=== PATIENT | female | born 1985 | race Caucasian/White ===

== ENCOUNTER 2016-12-22 23:07 | Emergency (ER) | payer OTHER ==
[~2016-12-22] VITALS: Ht 160 cm; Wt 76.2 kg
[~2016-12-22 23:07] MED LIST: AUGMENTIN 875 M1 TAB PO; BLM PO; DICLOXACILLIN500 MG PO; GOOD SENSE IBU200 MG PO; MEDROL DOSEPAK1 PAC PO; TYLENOL XSTR500 MG PO
[2016-12-23 00:50] LABS: ABSOLUTE BASOPHIL COUNT 0 /CUMM (0.0-0.2); ABSOLUTE EOSINOPHIL COUNT 0.1 /CUMM (0.0-0.7); ABSOLUTE GRANULOCYTE CT 3.6 /CUMM (1.4-6.5); ABSOLUTE LYMPH COUNT 2.2 /CUMM (1.2-3.4); ABSOLUTE MONOCYTE COUNT 0.4 /CUMM (0.10-0.60); BASOPHIL % 0.4 % (0.0-2.0); EOSINOPHIL % 1.6 % (0-5); GRANULOCYTE % 56.5 % (42.2-75.2); HEMATOCRIT 29.6 % (37-47); MEAN CORPUSCULAR HGB 21.3 PG (27.0-31.0); MEAN CORPUSCULAR HGB CONC 31.6 G/DL (33.0-37.0); MEAN CORPUSCULAR VOLUME 67.2 FL (81.0-99.0); MEAN PLATELET VOLUME 9.2 FL (7.4-10.4); PLATELET COUNT 163 /CUMM (130-400); RBC DISTRIBUTION WIDTH 17.3 % (11.5-14.5); WHITE BLOOD CELL COUNT 6.4 /CUMM (4.8-10.8)
--- NOTE | 2016-12-23 01:37 | ED CARDIAC/CP/PALPITATIONS ---
History of Present Illness General Chief Complaint: Chest Pain Stated Complaint: CP, LEFT ARM PAIN Source: patient Exam Limitations: no limitations Vital Signs & Intake/Output Vital Signs & Intake/Output Vital Signs Date Time Temp Pulse Resp B/P B/P Pulse O2 O2 Flow FiO2 Mean Ox Delivery Rate 12/23 0222 Room Air 12/23 0036 97.1 76 22 165/93 99 Room Air Allergies Coded Allergies: NO KNOWN ALLERGIES (11/13/15) Reconcile Medications Acetaminophen (Tylenol Xstr) 500 MG TAB 2 TAB PO PRN PAIN (Reported) AMOXICILLIN/POTASSIUM CLAV (Augmentin 875-125 Tablet) 875 MG/125 MG TAB 1 TAB PO BID PHARYNGITIS Ibuprofen 200 MG TAB 2 TAB PO PRN PAIN (Reported) LIDO/MAAL/DESTINEE (Magic Mouthwash) (Lido-Visc2% 30ML/[id number],MAALOX 120ml) 270 ML KARIN 10 ML PO TID PRN Mouth Pain EQUAL PARTS SWISH IN MOUTH X 30 SECONDS AND SPIT OUT Methylprednisolone. (Medrol) 1 PAC PAC 1 PAC PO AD INFLAMMATION Triage Note: 31YO FEMALE TO [place]/TRIAGE W/CO L CP THAT HAS BEEN PRESENT SINCE YESTERDAY. STATES RADIATION TO L ARM INTERMITTENTLY. DENIES ANY NAUSEA, SWEATINESS W/PAIN Triage Nurses Notes Reviewed? yes Onset: Abrupt Duration: day(s): (2) Timing: no prior history Location: central Radiation: UNDER LEFT BREAST Associated Symptoms: diaphoresis, shortness of breath : No Patient currently breastfeeds: No HPI: This is a 31-year-old female presents via with chief complaint of left-sided chest pain radiating to her left lower breast, left shoulder and arm for the past 2 days. Symptoms have been on and off. Maximum intensity of pain is 9 out of 10. Currently does 4-10. When it started on Saturday she associated shortness of breath, sweating and nausea. She states that occasionally she checks her blood pressure home and she is not feeling well and it is high. She's not on any medications for that. Denies any smoking alcohol or drug use. Denies any recent travel. She is not on any oral contraceptive pills. Denies any significant family history. Past History Travel History Traveled to [place] past 21 day No Medical History Any Pertinent Medical History? see below for history Neurological: NONE EENT: NONE Cardiovascular: NONE Respiratory: NONE Gastrointestinal: NONE Hepatic: NONE Renal: NONE Musculoskeletal: NONE Psychiatric: NONE Endocrine: NONE Blood Disorders: NONE Cancer(s): NONE ELECTRONIC SEMICONDUCTOR PROCESSOR/Reproductive: NONE Tetanus Vaccine: 09/24/12 Surgical History Surgical History: non-contributory Psychosocial History What is your primary language Faroese Tobacco Use: Never used Family History Hx Contributory? No Review of Systems Review of Systems Constitutional: Reports: diaphoresis. Denies: chills, fever. EENTM: Reports: no symptoms. Respiratory: Reports: short of breath. Denies: hemoptysis, sputum production. Cardiovascular: Reports: chest pain. Denies: palpitations. GI: Reports: no symptoms. Genitourinary: Reports: no symptoms. Musculoskeletal: Reports: no symptoms. Skin: Reports: no symptoms. Neurological/Psychological: Reports: anxiety. Hematologic/Endocrine: Denies: bruising, polyuria. Immunologic/Allergic: Reports: no symptoms. All Other Systems: Reviewed and Negative Physical Exam Physical Exam General Appearance: well developed/nourished, alert, awake, anxious, mild distress Head: atraumatic, normal appearance Eyes: Bilateral: normal appearance, PERRL, EOMI. Ears, Nose, Throat: normal pharynx, hearing grossly normal Neck: normal inspection, supple, full range of motion Respiratory: normal breath sounds, chest non-tender, no respiratory distress Cardiovascular: regular rate/rhythm Peripheral Pulses: 2+ radial (R), 2+ radial (L) Gastrointestinal: soft, non-tender Extremities: normal inspection, normal capillary refill, normal range of motion, no edema Neurologic/Psych: awake, alert, oriented x 3 Skin: intact, normal color, warm/dry Core Measures ACS in differential dx? Yes ASA ordered for poss ACS? Yes-ordered Severe Sepsis Present: No Septic Shock Present: No All Positive = PERC Ruled Out: Positive: age < 50 years, heart rate < 100 bpm, O2 sat > 94%, no hemoptysis, no hormone use, no prior DVT or PE, no unilateral leg swellin, no surgery/trauma w/ in 4w. Progress Differential Diagnosis: AMI, aortic dissection, musculoskeletal pain, myocarditis, pericarditis, pneumonia, pneumothorax, pulmonary embolism, PLEURISSY Plan of Care: Orders Procedure Date/time Status TROPONIN LEVEL 12/24 399 Complete EKG 05/07 0400 Active Telemetry/Plater Production 12/23 136 Active Add-on Test (ER Only) 12/23 133 Active PARTIAL THROMBOPLASTIN TIME 12/23 41 Complete PROTHROMBIN TIME 12/23 41 Complete HUMAN BETA HCG SCREEN 12/23 41 Complete D-DIMER 12/23 41 Complete TROPONIN LEVEL 12/23 26 Complete COMPREHENSIVE METABOLIC PANEL 12/23 26 Complete CBC WITHOUT DIFFERENTIAL 12/23 26 Complete EKG 12/22 2310 Active Laboratory Tests 12/23/16 0406: Troponin I < 0.01 12/23/16 0042: Anion Gap 11, Estimated GFR > 60, BUN/Creatinine Ratio 25.0, Glucose 112 H, Calcium 9.2, Total Bilirubin 0.3, AST 16, ALT 32, Alkaline Phosphatase 60, Troponin I < 0.01, Total Protein 7.0, Albumin 4.1, Globulin 2.9, Albumin/ Globulin Ratio 1.4, Total Beta HCG NEGATIVE, PT 10.7, INR 1.02, APTT 28, D-Dimer 414 H, CBC w Diff NO MAN DIFF REQ, RBC 4.40, MCV 67.2 L, MCH 21.3 L, RDW 17.3 H, MPV 9.2, Gran % 56.5, Lymphocytes % 34.8, Monocytes % 6.7, Eosinophils % 1.6 , Basophils % 0.4, Absolute Granulocytes 3.6, Absolute Lymphocytes 2.2, Absolute Monocytes 0.4, Absolute Eosinophils 0.1, Absolute Basophils 0, PUBS MCHC 31.6 L 12/23/16 003: Total Beta HCG Cancelled Diagnostic Imaging: Viewed by Me: CT Scan. Discussed w/RAD: CT Scan. Radiology Impression: PATIENT: KYRA ESQUIVEL PRESENT AGE: 31 PATIENT ACCOUNT NO: [id number] : 83 LOCATION: [facility] ORDERING PHYSICIAN: ARIAN MICHELLE MD SERVICE DATE: 12/23/16 EXAM TYPE: CAT - CTA CHEST-PULMONARY EMBOLISM EXAMINATION: CT ANGIOGRAM OF THE CHEST WITH AND WITHOUT CONTRAST (CT PULMONARY ANGIOGRAM FOR PE) CLINICAL INFORMATION: Pleuritic left-sided chest pain COMPARISON: None TECHNIQUE: Prior to contrast administration, noncontrast localization images were obtained. Subsequently, multidetector volumetric imaging was performed from the thoracic inlet to below the diaphragms following the administration of 95 mL Optiray 320 intravenous contrast. No contrast reaction reported. Sagittal, coronal, and MIP oblique sagittal reformatted images were obtained on the CT workstation, uploaded to PACS, and reviewed. Total exam dose-length product 475 mGy-cm. FINDINGS: QUALITY OF STUDY/CONTRAST BOLUS: Satisfactory PULMONARY ARTERIES: No central or segmental pulmonary emboli. THORACIC AORTA: No aneurysm or dissection. LUNG: The central airways are patent. No focal or diffuse lung parenchymal abnormality. No pulmonary nodules. PLEURA: No pleural effusion or pneumothorax. MEDIASTINUM: Normal heart size. No pericardial effusion. No hilar or mediastinal lymphadenopathy. No evidence of septal bowing or right heart strain. CHEST WALL/ AXILLA: No axillary or internal mammary lymphadenopathy. OSSEOUS STRUCTURES: No acute or suspicious osseous abnormality. UPPER ABDOMEN: Unremarkable. No reflux of contrast into the hepatic veins to suggest elevated right heart pressures. IMPRESSION: No pulmonary embolism or other acute intrathoracic abnormality. VTE: negative DICTATED BY: PILO SHARP MD DATE/TIME DICTATED:12/23/16310 RIG OPERATOR:HERMINIO DATE/TIME TRANSCRIBED:12/23/16310 CONFIDENTIAL, DO NOT COPY WITHOUT APPROPRIATE AUTHORIZATION. <Electronically signed in Other Vendor System> SIGNED BY: PILO SHARP MD 12/23/16316 Initial ED EKG: NSR Repeat EKG: unchanged Rhythm Strip: normal sinus rhythm Departure Departure Time of Disposition: 527 Disposition: HOME OR SELF CARE Condition: Stable Clinical Impression Primary Impression: Chest pain at rest Referrals: LENY DOUGLAS,SHAZIA Antunez (PCP/Family) KIMO MCCOY MD Additional Instructions: Please follow up with your primary care doctor in the office. Take Motrin or Tylenol as needed for pain. Follow-up with the blog writer listed regarding her episodes of chest pain. Departure Forms: Customer Survey General Discharge Information Critical Care Note Critical Care Note Critical Care Time: non-applicable
[2016-12-23 01:58] LABS: PT 10.7 SEC (9.4-12.5); PTT 28 SEC (25-37)
--- NOTE | 2016-12-23 03:17 | CT SCAN REPORT ---
EXAMINATION: CT ANGIOGRAM OF THE CHEST WITH AND WITHOUT CONTRAST (CT PULMONARY ANGIOGRAM FOR PE) CLINICAL INFORMATION: Pleuritic left-sided chest pain COMPARISON: None TECHNIQUE: Prior to contrast administration, noncontrast localization images were obtained. Subsequently, multidetector volumetric imaging was performed from the thoracic inlet to below the diaphragms following the administration of 95 mL Optiray 320 intravenous contrast. No contrast reaction reported. Sagittal, coronal, and MIP oblique sagittal reformatted images were obtained on the CT workstation, uploaded to PACS, and reviewed. Total exam dose-length product 475 mGy-cm. FINDINGS: QUALITY OF STUDY/CONTRAST BOLUS: Satisfactory PULMONARY ARTERIES: No central or segmental pulmonary emboli. THORACIC AORTA: No aneurysm or dissection. LUNG: The central airways are patent. No focal or diffuse lung parenchymal abnormality. No pulmonary nodules. PLEURA: No pleural effusion or pneumothorax. MEDIASTINUM: Normal heart size. No pericardial effusion. No hilar or mediastinal lymphadenopathy. No evidence of septal bowing or right heart strain. CHEST WALL/AXILLA: No axillary or internal mammary lymphadenopathy. OSSEOUS STRUCTURES: No acute or suspicious osseous abnormality. UPPER ABDOMEN: Unremarkable. No reflux of contrast into the hepatic veins to suggest elevated right heart pressures. IMPRESSION: No pulmonary embolism or other acute intrathoracic abnormality. VTE: negative
[2016-12-23 05:39] VITALS: BP 154/60
== END 2016-12-23 05:39 ==
LOC: ERH 23:07
PROVIDERS: Emergency Medicine
DX: R07.9 Chest pain, unspecified (principal)
CPT/HCPCS: 93005; 93010